=== PATIENT | female | born 1950 | race Caucasian/White ===

== ENCOUNTER 2016-10-13 05:05 | Observation (INO) | payer OTHER ==
[2016-09-26 13:16] VITALS: BMI 47.0
--- NOTE | 2016-09-26 13:53 | PAT Medication Instructions ---
Service Date Sep 26, 2016. Current Home Medication List Albuterol Inhaler (Ventolin Inhaler), 2 PUFFS INH UD Aspirin (Aspirin Chewable), 81 MG PO QAM Atorvastatin (Lipitor), 40 MG PO QPM Azelastine Hcl (Astelin Nasal [place]), 1-2 SPRAYS NA DIRECTED PRN for PRN Beclomethasone Dip (Qvar), 2 PUFFS INH BID PRN for Wheezing Ofjwinr-Xueaezwfg-Ooki (Calcium/Magnesium/Zinc), 1 TAB PO QAM Cholecalciferol (Vitamin D3), 5,000 TAB PO QAM Docusate Sodium (Colace), 300 CAP PO HS Epinephrine (Epipen), 0.3 MG IM UD Mometasone Furoate (Nasal) (Mometasone Furoate), 2 SPRAYS MEIR PRN Multiple Vitamins W/ Minerals (Hair/Skin/Nails/Biotin), 1 TAB PO QAM Pantoprazole (Protonix), 40 MG PO QAM Psyllium (Metamucil Powder), 1 PACK PO HS Simethicone (Simethicone Extra Strengt 125 mg), 1 TAB PO BID Spironolactone (Aldactone), 25 MG PO QAM Vitamin B Cmplx/Vitc/Folic Ac (Nephrocaps), 1 CAP PO QAM [Simethicone], 250 MG PO BID Medication Instructions For Your Scheduled Surgery - Check with surgeon/PCP for instructions: Aspirin (Aspirin Chewable), 81 MG PO QAM - Hold the following medications the morning of surgery: [Simethicone], 250 MG PO BID Vitamin B Cmplx/Vitc/Folic Ac (Nephrocaps), 1 CAP PO QAM Simethicone (Simethicone Extra Strengt 125 mg), 1 TAB PO BID Spironolactone (Aldactone), 25 MG PO QAM Multiple Vitamins W/ Minerals (Hair/Skin/Nails/Biotin), 1 TAB PO QAM Cholecalciferol (Vitamin D3), 5,000 TAB PO QAM Jmfadcw-Fgknyoqyw-Yklq (Calcium/Magnesium/Zinc), 1 TAB PO QAM - Take the following medications the morning of surgery with a sip of water: Pantoprazole (Protonix), 40 MG PO QAM Mometasone Furoate (Nasal) (Mometasone Furoate), 2 SPRAYS MEIR PRN Epinephrine (Epipen), 0.3 MG IM UD (if needed) Beclomethasone Dip (Qvar), 2 PUFFS INH BID PRN for Wheezing Azelastine Hcl (Astelin Nasal [place]), 1-2 SPRAYS NA DIRECTED PRN for PRN Albuterol Inhaler (Ventolin Inhaler), 2 PUFFS INH UD (bring with you to hospital morning of surgery) - Take the following medications as scheduled the night before surgery: [Simethicone], 250 MG PO BID Simethicone (Simethicone Extra Strengt 125 mg), 1 TAB PO BID Psyllium (Metamucil Powder), 1 PACK PO HS Mometasone Furoate (Nasal) (Mometasone Furoate), 2 SPRAYS MEIR PRN Epinephrine (Epipen), 0.3 MG IM UD (if needed) Docusate Sodium (Colace), 300 CAP PO HS Beclomethasone Dip (Qvar), 2 PUFFS INH BID PRN for Wheezing Azelastine Hcl (Astelin Nasal [place]), 1-2 SPRAYS NA DIRECTED PRN for PRN Atorvastatin (Lipitor), 40 MG PO QPM Albuterol Inhaler (Ventolin Inhaler), 2 PUFFS INH UD If you have any questions please call us at [phone] (Lelo Lawrence PA-C) or [phone] or [phone]
[2016-09-26 14:15] LABS: BASO % 0.3 %; BASO ABS # 0.02 K/uL (0-0.2); COMPLETE YES; HEMATOCRIT 43.2 % (37-47); IG% 0.1 %; LYMPH % 29.3 %; LYMPH ABS # 2.27 K/uL (1.2-3.4); MEAN CELL VOLUME 90.9 fL (80-100); MEAN CORPUSCULAR HEMOGLOBIN 31.8 pg (25-34); MEAN PLATELET VOLUME 9.3 fL (7.4-10.4); MONO % 10.5 %; NEUT % 56.8 %; PLATELET COUNT 217 K/uL (130-400); RED BLOOD COUNT 4.75 M/uL (4.2-5.4); WHITE BLOOD COUNT 7.75 K/uL (4.8-10.8)
[2016-09-26 14:31] LABS: BUN/CREATININE RATIO 13.3 (10-20); CALCIUM 10.1 mg/dl (8.5-10.1); CREATININE 0.81 mg/dl (0.60-1.20); POTASSIUM 4.2 mmol/L (3.5-5.1)
--- NOTE | 2016-09-26 14:37 | DIAGNOSTIC IMAGING REPORT ---
CHEST PREADMISSION(PA/LAT) CLINICAL HISTORY: Preoperative chest COMPARISON STUDY: 10/13/2014 FINDINGS: The cardiac and mediastinal contours are normal. There is no evidence of focal pulmonary consolidation. There is no evidence of failure. No pleural effusions are visualized.[ IMPRESSION: No active disease in the chest. Electronically signed by: Rolan Montana M.D. 09/26/2016 2:36 PM Dictated Date/Time: 09/26/2016 2:32 PM
[2016-10-13] VITALS (9 sets, daily range): BP systolic 95–156; BP diastolic 59–93; PULSE 77–97; TEMP 36.7–36.9; O2SAT 92–95; Ht 154.9 cm; Wt 112.3 kg
[~2016-10-13] VITALS: Ht 154.9 cm; Wt 112.3 kg
[~2016-10-13 05:05] MED LIST: ALBUAER19 INH; ASPCH81X PO; ASTN; ATOR-24 PO; B-CO1CAP17 PO; CALCTAB30 PO; CHOL20007 PO; DOCU-94 PO; EPP3/2 IM; MOME6000 NAE; MULT-859 PO; PANT40TA PO; PSYL55.43 PO; QVRINH40 INH; SIME1CAP37 PO; SIMETHICONE PO; SPIR25TA PO
[2016-10-13] MEDS ORDERED: LECI1CAP3 (05:53)
[2016-10-13] MEDS ORDERED: LACTATED RINGER'S 1000ML 1,000 ML IV SCH (06:00)
[2016-10-13] MEDS ORDERED: LIDOCAINE HCL 2% 2 ML VIAL (20MG/ML) ONE (06:35)
[2016-10-13] MEDS ORDERED: DiphenhydrAMINE HCL 50 MG/ML VIAL ONE (06:35)
[2016-10-13] MEDS ORDERED: ONDANSETRON INJ 2 MG/ML 2 ML VIAL ONE ×2 (06:35→08:13)
[2016-10-13] MEDS ORDERED: PROPOFOL IV EMULSION 10 MG/ML 20 ML VIAL IV ONE (06:35)
[2016-10-13] MEDS ORDERED: SUCCINYLCHOLINE CHLORIDE 20 MG/ML 10 ML VIAL IV ONE (06:35)
[2016-10-13] MEDS ORDERED: DEXAMETHASONE SOD INJ 4 MG/ML VIAL ONE (06:35)
[2016-10-13] MEDS ORDERED: MIDAZOLAM HCL 1 MG/ML 2ML VIAL ONE (06:36)
[2016-10-13] MEDS ORDERED: FENTANYL CITRATE INJ 50 MCG/1 ML 2 ML VIAL ONE (06:36)
[2016-10-13] MEDS ORDERED: BACITRACIN OINT 15 GM TUBE ONE (07:03)
[2016-10-13] MEDS ORDERED: LIDOCAINE/EPINEPHRINE 1% 20 ML VIAL ONE (07:03)
[2016-10-13] MEDS ORDERED: THROMBIN 5000 UNITS KIT ONE (07:03)
[2016-10-13] MEDS ORDERED: GELATIN SPONGE 12-7MM ONE (07:04)
[2016-10-13] MEDS ORDERED: EpINEphrine INJ 1MG/ML AMP 1 MG/ML AMP ONE (07:04)
--- NOTE | 2016-10-13 07:08 | History and Physical ---
History & Physical Date Oct 13, 2016. History of Present Illness The patient is a 66 year old female with complaints of primary hyperparathyroidism. CT/mibi fusion localized to left inferior gland. Additional History Hepatic Disease: No Endocrine Disorder: No Kidney Disease: No Hypertension: Yes Heart Disease: No Bleeding Tendencies: No Infectious Diseases: No Allergies Coded Allergies: Propofol (Verified Allergy, Intermediate, DYSPNEA/COMBATIVE, 09/26/16) Dyspnea/combative status post nasal surgery in past, was told due to propofol. Patient was treated with Benadryl prior to lap erasmo and colonoscopy and have propofol without issue. Latex1 -Allergic Contact Dermititis (Verified Allergy, Mild, CONTACT DERMATITIS, 09/26/16) Adhesives (Verified Allergy, Unknown, CONTACT DERMATITIS, 09/26/16) Home Medications Scheduled Albuterol Inhaler (Ventolin Inhaler), 2 PUFFS INH UD Aspirin (Aspirin Chewable), 81 MG PO QAM Atorvastatin (Lipitor), 40 MG PO QPM Fqqngsj-Pbpgxskpf-Tedp (Calcium/Magnesium/Zinc), 1 TAB PO QAM Cholecalciferol (Vitamin D3), 5,000 TAB PO QAM Docusate Sodium (Colace), 300 CAP PO HS Epinephrine (Epipen), 0.3 MG IM UD Lecithin (Lecithin 3500), 1,200 DAILY Mometasone Furoate (Nasal) (Mometasone Furoate), 2 SPRAYS MEIR PRN Multiple Vitamins W/ Minerals (Hair/Skin/Nails/Biotin), 1 TAB PO QAM Pantoprazole (Protonix), 40 MG PO QAM Psyllium (Metamucil Powder), 1 PACK PO HS Simethicone (Simethicone Extra Strengt 125 mg), 1 TAB PO BID Spironolactone (Aldactone), 25 MG PO QAM Vitamin B Cmplx/Vitc/Folic Ac (Nephrocaps), 1 CAP PO QAM Scheduled PRN Azelastine Hcl (Astelin Nasal [place]), 1-2 SPRAYS NA DIRECTED PRN for PRN Beclomethasone Dip (Qvar), 2 PUFFS INH BID PRN for Wheezing Physical Examination Skin: warm/dry, no rash Eyes: normal inspection, EOMI, sclerae normal ENT: normal ENT inspection, pharynx normal Head: normocephalic, atraumatic Neck: supple, no adenopathy, trachea midline Respiratory/Chest: lungs clear, normal breath sounds, no respiratory distress Cardiovascular: regular rate, rhythm, no edema, no murmur Diagnosis Primary hyperparathyroidism, localizing scan to left inferior location Plan of Treatment Proceed with parathyroid exploration SCDS
[2016-10-13] MEDS ORDERED: OXYC-57 PO (07:26)
--- NOTE | 2016-10-13 07:29 | Discharge Instructions ---
Discharge Instructions Admission Reason for Admission: Hyperparathyroidism Discharge Discharge Diagnosis / Problem: Hyperparathyroidism Discharge Goals Goal(s): Improve function Activity Recommendations Activity Limitations: as noted below Lifting Limitations: none Exercise/Sports Limitations: until after follow-up appointment May Resume Sexual Activity: after follow-up appointment Shower/Bathe: keep incision dry No strenuous activity for 2 weeks . Instructions / Follow-Up Instructions / Follow-Up Keep incision dry If you would like to shower, you can place a washcloth over the incision and wrap the neck in saran wrap. Call for any numbness or tingling around the lips or fingertips that is unrelieved by 15 minutes of [address] Do not place any ointment or lotion on the incision Current Hospital Diet Patient's current hospital diet: Regular Diet Discharge Diet Recommended Diet: Regular Diet Pending Studies Studies pending at discharge: no Medical Emergencies . Who to Call and When: Medical Emergencies: If at any time you feel your situation is an emergency, please call 911 immediately. . Non-Emergent Contact Non-Emergency issues call your: Specialist Contact Number: [phone] . . "Provider Documentation" section prepared by Diego Nowak. VTE Core Measure Inpt VTE Proph given/why not?: Treatment not indicated [place] Drug Monitoring Program Search Results: patient reviewed within database, no issues identified
[2016-10-13] MEDS ORDERED: OXYCODONE/ACETAMINOPHEN 5-325 TAB PO PRN (07:30)
[2016-10-13] MEDS ORDERED: ONDANSETRON INJ 2 MG/ML 2 ML VIAL IV PRN ×2 (07:30→09:30)
[2016-10-13] MEDS ORDERED: EPINEPHRINE ADULT AUTO-INJECT 0.3 MG SYR IM PRN (07:30)
[2016-10-13] MEDS ORDERED: BECLOMETHASONE HFA 40 MCG INHALER INH PRN (07:30)
[2016-10-13] MEDS ORDERED: MoRPHine SULFATE 2 MG/ML CARP IV PRN (07:30)
[2016-10-13] MEDS ORDERED: IV FLUIDS COMPLETED PRN (08:15)
[2016-10-13] MEDS ORDERED: SODIUM CHLORIDE 0.9% INJ 10 ML VIAL ONE (08:29)
[2016-10-13] MEDS ORDERED: PHENYLEPHRINE 100MCG/ML 5ML SYR ONE (08:35)
[2016-10-13] MEDS ORDERED: ARISTA ABSORBABLE HEMOSTAT 3GM TOP ONE (08:41)
[2016-10-13] MEDS ORDERED: PHENYLEPHRINE HCL INJ 10 MG/ML VIAL ONE (08:52)
[2016-10-13] MEDS ORDERED: LECITHIN 1200 MG SCH (09:00)
[2016-10-13] MEDS ORDERED: HYDROmorphone INJ 1 MG/ML SYR IV PRN (09:30)
[2016-10-13] MEDS ORDERED: ATROPINE SULFATE 0.1 MG/ML 5ML SYR IV PRN (09:30)
[2016-10-13] MEDS ORDERED: FENTANYL CITRATE INJ 50 MCG/1 ML 2 ML VIAL IV PRN (09:30)
[2016-10-13] MEDS ORDERED: EpHEDrine SULFATE INJ 50 MG/ML AMP IV PRN (09:30)
[2016-10-13] MEDS ORDERED: PROMETHAZINE HCL INJ 6.25 MG in SODIUM CHLORIDE 0.9% 50ML 50 ML IV PRN (09:30)
--- NOTE | 2016-10-13 09:40 | [facility] Post Operative Brief Note ---
Immediate Operative Summary Operative Date Oct 13, 2016. Pre-Operative Diagnosis Hyperparathyroidism Post-Operative Diagnosis Hyperparathyroidism, excision of left inferior adenoma Procedure(s) Performed Parathyroid Exploration Surgeon Dr. Diego Nowak Certified Juvenile Probation Officer Surgeon(s) Valerie Gonzales PA-C Estimated Blood Loss 5ml Findings large left inferior parathyroid adenoma Specimens Frozen Section: #1. Left Inferior Parathyroid #2. Left Inferior Parathyroid Adenoma Above specimens surgeon walked to lab at 0817 Drains none Anesthesia GETA Complication(s) None Disposition Recovery Room / PACU
--- NOTE | 2016-10-13 09:59 | OPERATIVE REPORT ---
DATE OF OPERATION: 10/13/2016 PREOPERATIVE DIAGNOSIS: Primary hyperparathyroidism. POSTOPERATIVE DIAGNOSES: Same plus inferior parathyroid adenoma removed. SURGEON: Dr. Diego Nowak. PROCEDURE: Parathyroid exploration. CONSULTING SENIOR PRACTICE DIRECTOR: Valerie Gonzales, physician apartment community assistant manager. COMPLICATIONS: None. DRAINS: None. ESTIMATED BLOOD LOSS: 5 mL. IV FLUIDS: 1300 mL. URINE OUTPUT: 0 mL. SPECIMENS: 1. Left inferior parathyroid. 2. Left inferior parathyroid adenoma, both sent for frozen section analysis. The first one was consistent with a normal cellular parathyroid tissue and second was consistent with the hypercellular parathyroid adenoma. DRAINS: None. INDICATIONS AND HISTORY: This is a 66-year-old female who presented to my office with elevated PTH and calcium levels. Her family doctor did obtain a parathyroid scan which localized a left inferior adenoma. I did also obtain a CT scan to fuse with the CT sestamibi. This did confirm anatomically what was seen on the sestamibi scan of the left inferior adenoma suspect. I discussed the options with her including observation versus neurology evaluation versus consideration of excision with parathyroid exploration. She expressed her understanding and wished to proceed with the exploration. I discussed the risks with her including bleeding, infection, recurrent laryngeal nerve injury, hypoparathyroidism, excessive scarring, tracheotomy; she expressed understanding and signed informed consent. DESCRIPTION OF THE OPERATION: The patient was brought to the operating room, identified, procedure verified. She underwent general endotracheal anesthesia with the nerve integrity monitoring system set up by the nerve monitoring service. SCDs were in place and noted to be in good working order prior to the start of the case. At this point, attention was directed to the neck where an incision was delineated in a low Sophia fashion off the left hand side. It was injected with 1% lidocaine 1:100,000 epinephrine and allowed time for local to take effect. Incision was then carried down with the 15 blade through skin and subcutaneous tissue down to the level of platysma. Superior and inferior subplatysmal flaps were then raised. At this point, the midline raphae was identified, divided and attention was directed to the strap muscles on the left hand side which were skeletonized and retracted laterally. The left side of thyroid gland came into plain view, was retracted medially with a Kitner at the inferior aspect. There was a fairly large parathyroid adenoma that was easily visible, it was dark in color consistent with a parathyroid adenoma. Attached to it via a little piece of fat was a normal appearing parathyroid gland, both of these were removed with blunt dissection with hemostats as well as with a Kitner. Once these were removed, they were sent for frozen section analysis. Frozen section did confirm that the normocellular parathyroid was the first thing seen followed by the larger clinically evident parathyroid adenoma was consistent with a hypercellular parathyroid gland. Of note, the pre-excision rapid PTH was 208. Post-excision labs that were drawn 15 minutes after excision of the adenoma dropped to 77 which is at least 50% drop and into the normal range, confirming removal of all over active parathyroid tissue. At this point, the wound was irrigated liberally, hemostasis was assured, several Valsalva maneuvers performed and no bleeding identified. At this point, Yani hemostatic powder was placed into the wound after it was irrigated liberally. This was closed in the usual fashion with 3-0 Vicryl for the deep layer, 3-0 Vicryl for the platysmal layer, 4-0 Vicryl for the deep dermal layer and a running 4-0 barbed suture for the subcuticular layer. The skin was closed with skin glue and a Steri-Strip was applied. At this point, the patient was awakened, extubated and taken to PACU in stable condition. I attest to the content of the Intraoperative Record and any orders documented therein. Any exceptions are noted below. ANDREASD
--- NOTE | 2016-10-13 10:15 | Anesthesiology Progress Note ---
Anesthesia Post Op Note Date & Time Oct 13, 2016 at 10:15 Vital Signs Pain Intensity: 3 Vital Signs Past 12 Hours Date Time Temp Pulse Resp B/P Pulse Ox O2 Delivery O2 Flow Rate FiO2 10/13/16 10:05 36.3 84 16 119/76 97 Nasal Cannula 2 10/13/16 09:55 94 16 118/63 96 Nasal Cannula 2 10/13/16 09:45 82 16 128/66 99 Mask 10 10/13/16 09:35 87 16 125/76 99 Mask 10 10/13/16 09:29 36.3 87 16 125/76 99 Mask 10 10/13/16 05:34 36.7 86 16 136/91 92 Room Air Notes Mental Status: alert / awake / arousable, participated in evaluation Pt Amnestic to Procedure: Yes Nausea / Vomiting: adequately controlled Pain: adequately controlled Airway Patency, RR, SpO2: stable & adequate BP & HR: stable & adequate Hydration State: stable & adequate Anesthetic Complications: no major complications apparent
[2016-10-13] MEDS ORDERED: SODIUM CHLORIDE 0.9% 1000ML 1,000 ML IV SCH (11:30)
[2016-10-13] MEDS: NEPHROCAPS PO SCH (12:08)
[2016-10-13] MEDS: CEROVITE ADV FORMULA TAB PO SCH (12:08)
[2016-10-13] MEDS: SPIRONOLACTONE 25 MG TAB PO SCH (12:08)
[2016-10-13] MEDS: PANTOprazole SOD 40 MG TAB PO SCH (12:08)
[2016-10-13] MEDS: SIMETHICONE 80 MG CHEW PO SCH ×2 (12:08→20:37)
[2016-10-13] MEDS: CHOLECALCIFEROL 1000 INTER.UNIT TAB PO SCH (12:09)
--- NOTE | 2016-10-13 12:09 | Ears,Nose,Throat Progress Note ---
Progress Note Date of Service Oct 13, 2016. Subjective Pt evaluation today including: conversation w/ patient, physical exam, chart review Patient is s/p PTX, POD 0. Doing well. Hungry. Objective Vital Signs Date Time Temp Pulse Resp B/P Pulse Ox O2 Delivery O2 Flow Rate FiO2 10/13/16 11:30 84 18 156/83 93 Nasal Cannula 2.0 10/13/16 11:00 77 16 136/81 94 Nasal Cannula 2.0 10/13/16 10:30 95 Nasal Cannula 2.0 10/13/16 10:30 95 Nasal Cannula 2.0 10/13/16 10:30 36.8 94 16 151/93 95 Nasal Cannula 2.0 10/13/16 10:05 36.3 84 16 119/76 97 Nasal Cannula 2 10/13/16 09:55 94 16 118/63 96 Nasal Cannula 2 10/13/16 09:45 82 16 128/66 99 Mask 10 10/13/16 09:35 87 16 125/76 99 Mask 10 10/13/16 09:29 36.3 87 16 125/76 99 Mask 10 10/13/16 05:34 36.7 86 16 136/91 92 Room Air Physical Exam General Appearance: WD/WN, no apparent distress Eyes: normal inspection ENT: normal ENT inspection, hearing grossly normal Neck: + pertinent finding (Steri strip in place. Flaps are flat. No collections. ) Neurologic/Psychiatric: + pertinent finding (Chvostek negative) Laboratory Results Last 24 Hours Test 10/13/16 07:51 10/13/16 08:29 Parathyroid Hormone (Intact) 208.1 pg/mL 77.6 pg/mL Assessment and Plan 66 yo female s/p PTX, POD 0 - left inferior adenoma removed - PTH normalized intra op - ambulate - advance diet as tolerated. - discharge planning for tomorrow am
[2016-10-13] MEDS: OXYCODONE/ACETAMINOPHEN 5-325 TAB PO PRN ×2 (12:18→20:09)
[2016-10-13] MEDS: ALBUTEROL HFA 8 GM INHALER INH PRN ×2 (15:45→21:42)
[2016-10-13] MEDS ORDERED: NURSING VERBAL MED ORDER ONE (16:45)
[2016-10-13] MEDS ORDERED: PSYLLIUM 58.6% PWD PACK S\\F PO SCH (21:00)
[2016-10-13] MEDS ORDERED: ATORVASTATIN 40 MG TAB PO SCH (21:00)
[2016-10-13] MEDS ORDERED: DOCUSATE SODIUM 100 MG CAP PO SCH (21:00)
[2016-10-14] MEDS: OXYCODONE/ACETAMINOPHEN 5-325 TAB PO PRN (00:39)
[2016-10-14 03:48] VITALS: BP 114/67; PULSE 76; TEMP 36.8; O2SAT 94
[2016-10-14 06:49] VITALS: BP 121/82; PULSE 85; TEMP 36.7; O2SAT 92
[2016-10-14] MEDS: ALBUTEROL HFA 8 GM INHALER INH PRN (07:29)
--- NOTE | 2016-10-14 07:51 | Ears,Nose,Throat Progress Note ---
Progress Note Date of Service Oct 14, 2016. Subjective Pt evaluation today including: conversation w/ patient, physical exam, chart review Did well overnight. Had some gas discomfort. Wants simethicone which she states improves her symptoms at home. Anxious to go home. Objective Vital Signs Date Time Temp Pulse Resp B/P Pulse Ox O2 Delivery O2 Flow Rate FiO2 10/14/16 06:49 36.7 85 17 121/82 92 Room Air 10/14/16 03:48 36.8 76 17 114/67 94 Room Air 10/14/16 00:00 Room Air 10/13/16 23:29 36.8 97 17 95/59 92 Room Air 10/13/16 15:30 Room Air 10/13/16 15:22 36.9 88 17 145/79 92 Room Air 10/13/16 14:14 95 Room Air 10/13/16 13:15 36.9 86 16 117/76 94 Nasal Cannula 2.0 10/13/16 12:27 84 16 150/92 95 2.0 10/13/16 11:30 84 18 156/83 93 Nasal Cannula 2.0 10/13/16 11:00 77 16 136/81 94 Nasal Cannula 2.0 10/13/16 10:30 95 Nasal Cannula 2.0 10/13/16 10:30 95 Nasal Cannula 2.0 10/13/16 10:30 36.8 94 16 151/93 95 Nasal Cannula 2.0 10/13/16 10:05 36.3 84 16 119/76 97 Nasal Cannula 2 10/13/16 09:55 94 16 118/63 96 Nasal Cannula 2 10/13/16 09:45 82 16 128/66 99 Mask 10 10/13/16 09:35 87 16 125/76 99 Mask 10 10/13/16 09:29 36.3 87 16 125/76 99 Mask 10 Physical Exam General Appearance: WD/WN, no apparent distress Eyes: PERRL, EOMI ENT: hearing grossly normal, pharynx normal Neck: + pertinent finding (Incision intact, flaps are flat, no collections. Some upper chest wall erythema from the adehisve drapes noted, improved from yesterday. ) Respiratory/Chest: no respiratory distress, no accessory muscle use Cardiovascular: no edema, no JVD Laboratory Results Last 24 Hours Test 10/13/16 07:51 10/13/16 08:29 Parathyroid Hormone (Intact) 208.1 pg/mL 77.6 pg/mL Assessment and Plan 66 yo female s/p PTX, POD 1 - patient states she is feeling well - some of the vague pain discomfort she had pre-op has resolved - will send home with percocet for pain and keflex - follow up next week
[2016-10-14] MEDS ORDERED: CEPH500C2 PO (07:53)
--- NOTE | 2016-10-14 07:56 | Discharge Summary ---
Discharge Summary Date of Service Oct 14, 2016. Discharge Summary Admission Date: Oct 13, 2016 at 07:24 Discharge Date: Oct 14, 2016 Discharge Disposition: Home Primary Diagnosis: Primary hyperparathyroidism Procedures: Parathyroid exploration Discharge Instructions Last Recorded Wt (Kilograms): 112.30 Activity Recommendations: limitations (No strenuous activity for 2 weeks) Return to School/Work: limitations Diet At Discharge: Regular Allergies: Coded Allergies: Propofol (Verified Allergy, Intermediate, DYSPNEA/COMBATIVE, 09/26/16) Dyspnea/combative status post nasal surgery in past, was told due to propofol. Patient was treated with Benadryl prior to lap erasmo and colonoscopy and have propofol without issue. Latex1 -Allergic Contact Dermititis (Verified Allergy, Mild, CONTACT DERMATITIS, 09/26/16) Adhesives (Verified Allergy, Unknown, CONTACT DERMATITIS, 09/26/16) Discharge Medications: Percocet as needed Keflex 500mg, TID for one week Home Health Services: none Special Care: Call your doctor if: * Temperature above 101 degrees * Pain not relieved by pain medicine ordered * There is increased drainage or redness from any incision * You have any unanswered questions or concerns. Avoid all tobacco products. If you need help to stop smoking, call [place]'s FREE QUITLINE at . This is a free call. Admission Information Admission HPI: 66 yo female with primary hyperparathyroidism, localizing imaging to the left inferior location. Admission Physical Exam: Gen: AAOx3. NAD Neck: No masses Lungs: CTAB Heart: RRR Hospital Course Patient admitted overnight for observation after undergoing parathyroid exploration. She did well, tolerated diet. She was discharged on POD 1. Total time spent on discharge = This includes examination of the patient, discharge planning, medication reconciliation, and communication with other providers.
[2016-10-14] MEDS ORDERED: SIMETHICONE 80 MG CHEW PO PRN (08:00)
[2016-10-14] MEDS: SIMETHICONE 80 MG CHEW PO SCH (08:24)
[2016-10-14] MEDS: NEPHROCAPS PO SCH (08:26)
[2016-10-14] MEDS: CEROVITE ADV FORMULA TAB PO SCH (08:26)
[2016-10-14] MEDS: CHOLECALCIFEROL 1000 INTER.UNIT TAB PO SCH (08:26)
[2016-10-14] MEDS: PANTOprazole SOD 40 MG TAB PO SCH (08:27)
[2016-10-14] MEDS: SPIRONOLACTONE 25 MG TAB PO SCH (08:27)
[2016-10-14 09:11] VITALS: BP 121/82; PULSE 85; TEMP 36.7; O2SAT 92
== END 2016-10-14 11:10 | disposition home or self-care (01) ==
LOC: ENRESERVDT → ENRESERVTM → C.ACU 05:05 → C.MSN 07:24
PROVIDERS: ADMIT Otolaryngology; ATTEND Otolaryngology
DX: D35.1 Benign neoplasm of parathyroid gland (principal); E21.0 Primary hyperparathyroidism; I10 Essential (primary) hypertension; Z91.040 Latex allergy status